=== PATIENT | female | born 1935 | race Caucasian/White ===

== ENCOUNTER → 2018-12-26 | Outpatient (CLI) | payer MEDICARE ==
--- NOTE | 2018-12-26 13:03 | Diagnostic Imaging Report ---
INDICATION: Congestive heart failure. TECHNIQUE: Two view chest 12:44 PM CORRELATION STUDY: None FINDINGS: Left-sided dual-chamber pacemaker present. Cardiac enlargement along with pulmonary vascular congestion. Prominent interstitial markings favor a component of edema. No consolidating infiltrate. No significant effusion. Mildly advanced degenerative changes thoracic spine. IMPRESSION: 1. Cardiac enlargement the findings compatible with likely mild severity congestive heart failure. Component of mild interstitial edema present. Dictated by: Dictated on workstation # [id number]
== END ==
LOC: RAD FS 12:39
PROVIDERS: ATTEND Nurse Practitioner Family
DX: I50.9 Heart failure, unspecified (principal); I51.7 Cardiomegaly
CPT/HCPCS: 71046

== ENCOUNTER → 2019-03-22 | Outpatient (CLI) | payer MEDICARE ==
--- NOTE | 2019-03-22 10:12 | Diagnostic Imaging Report ---
INDICATION: Chronic low back pain. TIME OF EXAM: 9:57 AM FINDINGS: Curvature and alignment of lumbar spine is normal. There is compression fracture deformity involving the L3 vertebral body, which demonstrates moderate central and anterior compression. Age of this is indeterminate. No definite retropulsion is seen. Remaining lumbar vertebrae demonstrate normal stature. There is generalized degenerative disc disease with variable disc space narrowing and marginal spurring. Aorta is calcified. IMPRESSION: L3 compression fracture, age indeterminate. MRI could be performed to evaluate acuity. If the patient is unable to obtain an MRI, CT through the lumbar spine could be performed to evaluate for potential acuity. Dictated by: Dictated on workstation # [id number]
== END ==
LOC: RAD FS 09:53
PROVIDERS: ATTEND Family Medicine
DX: S32.030A Wedge compression fracture of third lumbar vertebra, initial encounter for closed fracture (principal)
CPT/HCPCS: 72100

== ENCOUNTER → 2019-08-17 | Outpatient (CLI) | payer MEDICARE ==
[2019-08-17 11:14] LABS: INR 4.5 (0.8-1.4); PROTHROMBIN TIME PATIENT 45.2 SEC (12.2-14.7)
== END ==
LOC: LAB FS 10:46
PROVIDERS: ATTEND Internal Medicine Interventional Cardiology
DX: I50.9 Heart failure, unspecified (principal); Z95.0 Presence of cardiac pacemaker; Z79.01 Long term (current) use of anticoagulants
CPT/HCPCS: 36415; 85610

== ENCOUNTER → 2019-09-24 | Outpatient (CLI) | payer MEDICARE ==
[2019-09-24 10:58] LABS: BILIRUBIN,URINE NEGATIVE (NEGATIVE); CLARITY,URINE CLEAR; COLOR,URINE YELLOW; GLUCOSE, URINE (UA) NEGATIVE (NEGATIVE); KETONES,URINE NEGATIVE (NEGATIVE); LEUKOCYTE ESTERASE ,URINE NEGATIVE (NEGATIVE); NITRITE,URINE NEGATIVE (NEGATIVE); PH,URINE 6.5 (5-9); PROTEIN,URINE NEGATIVE (NEGATIVE)
[2019-09-24 10:59] LABS: BACTERIA,URINE TRACE /HPF
[2019-09-24 11:30] LABS: HEMOGLOBIN 9.8 G/DL (11.5-16.0); MEAN PLATELET VOLUME 9.4 FL (7.4-10.4); RED CELL DISTRIBUTION WIDTH 15.9 % (10.0-14.5); WHITE BLOOD COUNT 7.8 10^3/uL (4.3-11.0)
[2019-09-24 15:16] LABS: PHOSPHORUS 3.3 MG/DL (2.3-4.7)
[2019-09-24 15:29] LABS: URINE CREATININE FOR RATIO 80 MG/DL (30-125); URINE PROTEIN FOR RATIO ONLY < 6 MG/DL (6-12)
[2019-09-25 07:33] LABS: CALCIUM 9.4 MG/DL (8.5-10.1); CREATININE SERUM 1.61 MG/DL (0.60-1.30); POTASSIUM 3.6 MMOL/L (3.6-5.0)
== END ==
LOC: LAB FS 09:48
PROVIDERS: ATTEND Internal Medicine Nephrology
DX: E10.21 Type 1 diabetes mellitus with diabetic nephropathy (principal); E10.22 Type 1 diabetes mellitus with diabetic chronic kidney disease; I50.22 Chronic systolic (congestive) heart failure; I50.30 Unspecified diastolic (congestive) heart failure; D64.9 Anemia, unspecified; G47.33 Obstructive sleep apnea (adult) (pediatric); N18.3 Chronic kidney disease, stage 3 (moderate); N17.9 Acute kidney failure, unspecified
CPT/HCPCS: 36415; 80069; 81000; 82306; 82570; 82728; 83540; 83970; 84156; 84550; 85027

== ENCOUNTER 2019-10-18 08:58 | Outpatient (RCR) | payer MEDICARE ==
[2019-10-11 08:35] VITALS: BP 105/50
[2019-10-11] MEDS: FERRIC CARBOXYMALTOSE INJ 750 MG in NS (IVPB) 250 ML IV SCH (09:19)
[~2019-10-18] VITALS: Wt 107.0 kg
[2019-10-18 08:55] VITALS: BP 112/61
[~2019-10-18 08:58] MED LIST: ALBU0.63 IH; ALLO100T PO; ESCI10TA PO; FAMO-119 PO; FURO80TA83 PO; LEVO5DRO OU; LOSA50TA63 PO; METO2.5T PO; OMG1KC PO; POTA20TA15 PO; PRAM0.5T2 PO; SILD20TA PO; SIMV20TA PO; SOTA120T PO; TRM50T PO; WARF-47 PO
[2019-10-18] MEDS: FERRIC CARBOXYMALTOSE INJ 750 MG in NS (IVPB) 250 ML IV SCH (09:19)
== END 2019-10-18 09:50 | disposition home or self-care (01) ==
LOC: SDC 08:58
PROVIDERS: ATTEND Internal Medicine Nephrology
DX: D50.9 Iron deficiency anemia, unspecified (principal); N18.3 Chronic kidney disease, stage 3 (moderate)
CPT/HCPCS: 96365

== ENCOUNTER → 2020-01-07 | Outpatient (CLI) | payer MEDICARE ==
[2020-01-07 19:11] LABS: EOSINOPHILS % (AUTO) 6 % (0-10); HEMATOCRIT 38 % (35-52); HEMOGLOBIN 11.4 G/DL (11.5-16.0); LYMPHOCYTES % (AUTO) 33 % (12-44); MEAN CORPUSCULAR HEMOGLOBIN 30 PG (25-34); MEAN CORPUSCULAR HGB CONC 30 G/DL (32-36); MEAN CORPUSCULAR VOLUME 101 FL (80-99); MEAN PLATELET VOLUME 10.2 FL (7.4-10.4); MONOCYTES % (AUTO) 6 % (0-12); NEUTROPHILS % (AUTO) 55 % (42-75); PLATELET COUNT 99 10^3/uL (130-400); RED CELL DISTRIBUTION WIDTH 15.1 % (10.0-14.5); WHITE BLOOD COUNT 6.9 10^3/uL (4.3-11.0)
[2020-01-07 19:12] LABS: EOSINOPHILS # (AUTO) 0.4 10^3/uL (0.0-0.3); LYMPHOCYTES # (AUTO) 2.3 X 10^3 (1.0-4.0); MONOCYTES # (AUTO) 0.4 X 10^3 (0.0-1.0); NEUTROPHILS # (AUTO) 3.7 X 10^3 (1.8-7.8)
[2020-01-07 19:13] LABS: BASOPHILS % (AUTO) 0 % (0-10)
[2020-01-07 19:30] LABS: BACTERIA,URINE NEGATIVE /HPF; BILIRUBIN,URINE NEGATIVE (NEGATIVE); CLARITY,URINE CLEAR; COLOR,URINE PALE YELLOW; GLUCOSE, URINE (UA) NEGATIVE (NEGATIVE); KETONES,URINE NEGATIVE (NEGATIVE); LEUKOCYTE ESTERASE ,URINE NEGATIVE (NEGATIVE); NITRITE,URINE NEGATIVE (NEGATIVE); PH,URINE 6.5 (5-9); PROTEIN,URINE NEGATIVE (NEGATIVE); SQUAMOUS EPITHELIAL CELL,UR RARE /HPF
[2020-01-08 15:17] LABS: PHOSPHORUS 3.2 MG/DL (2.3-4.7)
[2020-01-08 15:20] LABS: URIC ACID 6.5 MG/DL (2.6-7.2)
[2020-01-08 15:23] LABS: URINE CREATININE FOR RATIO 18 MG/DL (30-125)
[2020-01-08 15:24] LABS: URINE PROTEIN FOR RATIO ONLY < 6 MG/DL (6-12)
[2020-01-08 15:43] LABS: BUN/CREATININE RATIO 26; CALCIUM 9.5 MG/DL (8.5-10.1); CARBON DIOXIDE 30 MMOL/L (21-32); CHLORIDE 100 MMOL/L (98-107); CREATININE SERUM 0.88 MG/DL (0.60-1.30); GFR ESTIMATED > 60; GLUCOSE 81 MG/DL (70-105); POTASSIUM 4.7 MMOL/L (3.6-5.0); SODIUM 142 MMOL/L (135-145)
== END ==
LOC: LAB FS 18:29
PROVIDERS: ATTEND Internal Medicine Nephrology
DX: I50.21 Acute systolic (congestive) heart failure (principal); N18.9 Chronic kidney disease, unspecified
CPT/HCPCS: 36415; 80069; 81000; 82306; 82570; 82728; 83540; 83970; 84156; 84550; 85025

== ENCOUNTER 2021-01-15 12:34 | Outpatient (RCR) | payer MEDICARE ==
[2021-01-08] MEDS: FERRIC CARBOXYMALTOSE INJ 750 MG in NS (IVPB) 250 ML IV SCH (12:49)
[2021-01-08 13:27] VITALS: BP 176/80
[~2021-01-15] VITALS: Ht 157.5 cm; Wt 107.0 kg
[2021-01-15] MEDS: FERRIC CARBOXYMALTOSE INJ 750 MG in NS (IVPB) 250 ML IV SCH (12:59)
[2021-01-15 13:26] VITALS: BP 143/58
== END 2021-04-08 | disposition home or self-care (01) ==
LOC: SDC 12:34
PROVIDERS: ATTEND Internal Medicine Nephrology
DX: D63.1 Anemia in chronic kidney disease (principal); N18.9 Chronic kidney disease, unspecified
CPT/HCPCS: 96365

== ENCOUNTER 2022-07-07 10:06 | Emergency (ER) | payer MEDICARE ==
[~2022-07-07] VITALS: Ht 162.5 cm; Wt 107.0 kg
[~2022-07-07 10:06] MED LIST changes: +POTA-179 PO; -POTA20TA15 PO; +SIMV-333 PO; -SIMV20TA PO
--- NOTE | 2022-07-07 10:11 | ED Fall/Injury ---
General Stated Complaint: FELL/ANKLE INJURY History of Present Illness Date Seen by Provider: Jul 07, 2022 Time Seen by Provider: 10:11 Initial Comments 86-year-old female who is taking Coumadin, is brought in by EMS with complaints of a trip and fall while getting into her car today. Patient's ankle twisted on the curb causing her to stumble and fall and hit her head on the door. Patient sustained an abrasion to her right forearm. Denies LOC, headache, dizziness, blurry vision. Patient's left ankle is swollen and she is unable to bear weight. Allergies and Home Medications Allergies Coded Allergies: Penicillins (Unverified Allergy, Unknown, rash, 10/11/19) Sulfa (Sulfonamide Antibiotics) (Unverified Adverse Reaction, Unknown, unknown, 10/11/19) adhesive tape (Unverified Adverse Reaction, Unknown, itch, 10/11/19) amlodipine (Unverified Adverse Reaction, Unknown, swelling, 10/11/19) atropine (Unverified Adverse Reaction, Unknown, diarrhea, 10/11/19) clopidogrel (Unverified Adverse Reaction, Unknown, rash, 10/11/19) diphenoxylate (Unverified Adverse Reaction, Unknown, diarrhea, 10/11/19) doxycycline (Unverified Adverse Reaction, Unknown, diarrheaa, 10/11/19) lincomycin (Unverified Adverse Reaction, Unknown, diarrhea, 10/11/19) lisinopril (Unverified Adverse Reaction, Unknown, cough, 10/11/19) Patient Home Medication List Home Medication List Reviewed: Yes Albuterol Sulfate (Albuterol Sulfate) 0.63 Mg/3 Ml Vial.neb, 0.63 MG IH Q6H PRN for SHORTNESS OF BREATH, (Reported) Entered as Reported by: THAO GONZALEZ on 10/11/19912 Allopurinol (Allopurinol) 100 Mg Tablet, 100 MG PO DAILY, (Reported) Entered as Reported by: THAO GONZALEZ on 10/11/19912 Escitalopram Oxalate (Lexapro) 10 Mg Tablet, 10 MG PO DAILY, (Reported) Entered as Reported by: THAO GONZALEZ on 10/11/19912 Famotidine (Pepcid) 20 Mg Tablet, 20 MG PO BID, (Reported) Entered as Reported by: THAO GONZALEZ on 10/11/19912 Furosemide (Lasix) 80 Mg Tablet, 80 MG PO DAILY, (Reported) Entered as Reported by: THAO GONZALEZ on 10/11/19912 Levobunolol HCl (Levobunolol HCl) 5 Ml Drops, 1 DROP OU DAILY, (Reported) Entered as Reported by: THAO GONZALEZ on 10/11/19912 Losartan Potassium (Losartan Potassium) 50 Mg Tablet, 50 MG PO DAILY, (Reported) Entered as Reported by: THAO GONZALEZ on 10/11/19912 Metolazone (Metolazone) 2.5 Mg Tablet, 2.5 MG PO twice weekly, (Reported) Entered as Reported by: THAO GONZALEZ on 10/11/19912 [place] 3 Polyunsat Fatty Acids (Fish Oil 1,000 mg Capsule) 1,000 Mg Cap, 1,000 MG PO Q12H, (Reported) Entered as Reported by: THAO GONZALEZ on 10/11/19912 Potassium Chloride (Potassium Chloride) 20 Meq Tab.er.prt, 20 MEQ PO BID, (Reported) Entered as Reported by: THAO GONZALEZ on 10/11/19912 Pramipexole Di-HCl (Mirapex) 0.5 Mg Tablet, 0.5 MG PO BID, (Reported) Entered as Reported by: THAO GONZALEZ on 10/11/19912 Sildenafil Citrate (Revatio) 20 Mg Tablet, 20 MG PO TID, (Reported) Entered as Reported by: THAO GONZALEZ on 10/11/19912 Simvastatin (Zocor) 20 Mg Tablet, 20 MG PO HS, (Reported) Entered as Reported by: THAO GONZALEZ on 10/11/19912 Sotalol HCl (Sotalol) 120 Mg Tablet, 120 MG PO Q12H, (Reported) Entered as Reported by: THAO GONZALEZ on 10/11/19912 Tramadol HCl (Tramadol HCl) 50 Mg Tablet, 50 MG PO Q6H PRN for PAIN-MODERATE (5- 7), (Reported) Entered as Reported by: THAO GONZALEZ on 10/11/19912 Warfarin Sodium (Warfarin Sodium) 2 Mg Tablet, 2 MG PO DAILY, (Reported) Entered as Reported by: THAO GONZALEZ on 10/11/19 0913 Review of Systems Review of Systems Constitutional: no symptoms reported Eyes: No Symptoms Reported Ears, Nose, Mouth, Throat: no symptoms reported Respiratory: no symptoms reported Cardiovascular: no symptoms reported Gastrointestinal: no symptoms reported Genitourinary: no symptoms reported Musculoskeletal: joint pain, joint swelling Skin: no symptoms reported Psychiatric/Neurological: No Symptoms Reported Physical Exam Vital Signs Vital Signs - First Documented 07/07/22 10:07 Temp 36.3 Pulse 78 Resp 16 B/P (MAP) 110/54 (72) Pulse Ox 97 O2 Delivery Room Air Capillary Refill : Height, Weight, BMI Height: '" Weight: lbs. oz. 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, no motor/sensory deficits, alert, normal mood/affect, oriented x 3 Skin: normal color Lymphatic: no adenopathy [place] Coma Score Best Eye Response: (4) Open Spontaneously Best Verbal Response: (5) Oriented Best Motor Response: (6) Obeys Commands [place] Total: 15 Progress/Results/Core Measures Results/Orders My Orders Orders - DAMION PANDYA MD Ankle 3 View Left (07/07/22 10:16) Foot 2 View Left (07/07/22 10:16) Knee 2 View Left (07/07/22 10:16) Tibia Fibula 2 View Left (07/07/22 10:16) Ct Head Wo (07/07/22 10:20) Vital Signs/I&O 07/07/22 10:07 Temp 36.3 Pulse 78 Resp 16 B/P (MAP) 110/54 (72) Pulse Ox 97 O2 Delivery Room Air Progress Progress Note : Progress Note 1) FALL: LEFT ANKLE SPRAIN/ RIGHT FOREARM ABRASION: - CT HEAD: no acute findings - XR LEFT ANKLE/ FOOT/ TIB-FIB/ KNEE: no fractures. Foot x-ray shows lucency in 2nd toe, but pt does not have any pain there. It may be chronic - Pt is not able to use crutches,will give her a boot and she can use her walker. - FOllow up with Ortho within 7days - Tylenol & Ibuprofen prn pain - Abrasion cleaned, antibiotic ointment and bandaid -The patient was seen in the ED, and treated appropriately to presentation at a specific point in time. Patient is informed that there is a possibility that disease and illness can evolve and change in acuity rapidly or slowly after patient is discharged from the ER. Precautionary advice given to the patient for immediate return to ER if symptoms worsen or do not resolve, and to seek emergency care sooner rather than later. Pt also advised on the importance of PCP follow up and compliance with management and follow up plan with PCP and/or specialist, as this is part of the management plan. Pt verbally expressed understanding. Diagnostic Imaging Diagonstic Imaging: Xray, CT Plain Films/CT/US/NM/MRI: leg, knee, ankle, head Comments [facility] [place] [place] NAME: CANDY LEDESMA [employer] REC#: [id number] PT STATUS: REG ER : 1935 PHYSICIAN: DMAION PANDYA MD ADMIT DATE: 07/07/22/ER FS Draft Date of Exam:07/07/22 FOOT 2 VIEW LEFT INDICATION: Fall. Left foot pain. FINDINGS: There is a lucency along the base of the proximal phalanx of the 2nd toe along the 1st digit side. This may represent an acute or old fracture as it does appear slightly corticated. No other signs of fracture are seen. Generalized osteoarthritic changes are noted. IMPRESSION: Small bony fragment along the base of the 2nd digit proximal phalanx. Clinical correlation to determine if this is an acute or chronic finding. Dictated on workstation # [id number] Dict: 07/07/22 1107 Trans: 07/07/22 1110 [id number] Interpreted by: BIJAL SOMERS MD Electronically signed by: [facility] [place] NAME: CANDY LEDESMA MED REC#: [id number] PT STATUS: REG ER : 1935 PHYSICIAN: DAMION PANDYA MD ADMIT DATE: 07/07/22/ER FS Draft Date of Exam:07/07/22 KNEE 2 VIEW LEFT Indication: Fall. Left knee pain. FINDINGS: 2 views. The articulating surfaces are smooth. Joint space well-maintained. Patella is in good alignment. No fractures are seen. IMPRESSION: Normal left knee. Dictated on workstation # [id number] Dict: 07/07/22 1109 Trans: 07/07/22 1110 [facility] [id number] Interpreted by: BIJAL SOMERS MD Electronically signed by: [employer] [facility] [place] [place] NAME: KELI LEDESMAYCE Ric [employer] REC#: [id number] PT STATUS: REG ER : 1935 PHYSICIAN: DAMION PANDYA MD ADMIT DATE: 07/07/22/ER FS Draft Date of Exam:07/07/22 ANKLE 3 VIEW LEFT INDICATION: Fall, pain. FINDINGS: Bone density appears diminished. There is likely underlying osteopenia or osteoporosis. No detectable fracture. No widening or disruption of the ankle mortise. The articular surfaces are smooth. There is soft tissue swelling about the ankle, most notably laterally. The base of the fifth metatarsal is intact. No gas or foreign body. IMPRESSION: Lateral swelling and likely bony demineralization, however no fracture or disruption to the mortise apparent. Dictated on workstation # [id number] Dict: 07/07/22 1100 Trans: 07/07/22 1106 [id number] Interpreted by: CARMENCITA KEBEDE Electronically signed by: [facility] [place] [place] NAME: KELI LEDESMAYCE Ric [employer] REC#: [id number] PT STATUS: REG ER : 1935 PHYSICIAN: DAMION PANDYA MD ADMIT DATE: 07/07/22/ER FS Draft Date of Exam:07/07/22 CT HEAD WO PROCEDURE: CT head without contrast. TECHNIQUE: Multiple contiguous axial images were obtained through the brain without the use of intravenous contrast. Auto Exposure Controls were utilized during the CT exam to meet ALARA standards for radiation dose reduction. INDICATION: Fall. FINDINGS: There is mild senescent cortical atrophy. There are intracranial atherosclerotic vascular calcifications. There is no william hydrocephalus and there is no focal or generalized cerebral edema. There are no findings of an elevated intracerebral pressure. No abnormal extra-axial collection. There is no hemorrhage. The calvarium is unremarkable. The orbits and sinuses appear nonacute with lobular membrane thickening and a likely mucus retention cyst in the right maxillary. IMPRESSION: 1. Mild chronic senescent atrophy, atherosclerosis, and chronic appearing paranasal sinus membrane disease. 2. However, no hemorrhage, cerebral edema, hydrocephalus, or acute appearing abnormalities. 3. 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 Dictated on workstation # [id number] Dict: 07/07/22 1053 Trans: 07/07/22 105 JEFFERY [id number] Interpreted by: CARMENCITA KEBEDE Electronically signed by: [facility] [place] [place] NAME: CANDY LEDESMA [employer] REC#: [id number] PT STATUS: REG ER : 1935 PHYSICIAN: DAMION PANDYA MD ADMIT DATE: 07/07/22/ER FS Draft Date of Exam:07/07/22 TIBIA FIBULA 2 VIEW LEFT Indication: Fall with left lower leg pain. FINDINGS: 2 views. The tibia and fibula are intact. Ankle mortise is in good alignment. There are a few phleboliths noted. IMPRESSION: No acute abnormalities. Dictated on workstation # [id number] Dict: 07/07/22 1108 Trans: 07/07/22 1110 DEREK [id number] Interpreted by: BIJAL SOMERS MD Electronically signed by: Departure Impression Primary Impression: Fall Qualified Codes: W19.XXXA - Unspecified fall, initial encounter Additional Impression: Left ankle sprain Qualified Codes: S93.402A - Sprain of unspecified ligament of left ankle, initial encounter Disposition: 01 HOME, SELF-CARE Condition: Stable Departure-Patient Inst. Referrals: MARILYNN PAREKH MD (PCP/Family) Primary Care Physician FAIZA QUINTANA MD Patient Instructions: Preventing Falls ED, Ankle Sprain (DC) Add. Discharge Instructions: - Pt is not able to use crutches,will give her a boot and she can use her walker. - FOllow up with Ortho, Dr Quintana's office: within 7days. Make appointment - Tylenol & Ibuprofen prn pain DAMION PANDYA MD Jul 07, 2022 10:11
--- NOTE | 2022-07-07 10:57 | Diagnostic Imaging Report ---
PROCEDURE: CT head without contrast. TECHNIQUE: Multiple contiguous axial images were obtained through the brain without the use of intravenous contrast. Auto Exposure Controls were utilized during the CT exam to meet ALARA standards for radiation dose reduction. INDICATION: Fall. FINDINGS: There is mild senescent cortical atrophy. There are intracranial atherosclerotic vascular calcifications. There is no william hydrocephalus and there is no focal or generalized cerebral edema. There are no findings of an elevated intracerebral pressure. No abnormal extra-axial collection. There is no hemorrhage. The calvarium is unremarkable. The orbits and sinuses appear nonacute with lobular membrane thickening and a likely mucus retention cyst in the right maxillary. IMPRESSION: 1. Mild chronic senescent atrophy, atherosclerosis, and chronic appearing paranasal sinus membrane disease. 2. However, no hemorrhage, cerebral edema, hydrocephalus, or acute appearing abnormalities. 3. 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 Dictated by: Dictated on workstation # [id number]
--- NOTE | 2022-07-07 11:06 | Diagnostic Imaging Report ---
INDICATION: Fall, pain. FINDINGS: Bone density appears diminished. There is likely underlying osteopenia or osteoporosis. No detectable fracture. No widening or disruption of the ankle mortise. The articular surfaces are smooth. There is soft tissue swelling about the ankle, most notably laterally. The base of the fifth metatarsal is intact. No gas or foreign body. IMPRESSION: Lateral swelling and likely bony demineralization, however no fracture or disruption to the mortise apparent. Dictated by: Dictated on workstation # [id number]
--- NOTE | 2022-07-07 11:10 | Diagnostic Imaging Report ---
Indication: Fall. Left knee pain. FINDINGS: 2 views. The articulating surfaces are smooth. Joint space well-maintained. Patella is in good alignment. No fractures are seen. IMPRESSION: Normal left knee. Dictated by: Dictated on workstation # [id number]
--- NOTE | 2022-07-07 11:10 | Diagnostic Imaging Report ---
Indication: Fall with left lower leg pain. FINDINGS: 2 views. The tibia and fibula are intact. Ankle mortise is in good alignment. There are a few phleboliths noted. IMPRESSION: No acute abnormalities. Dictated by: Dictated on workstation # [id number]
--- NOTE | 2022-07-07 11:10 | Diagnostic Imaging Report ---
INDICATION: Fall. Left foot pain. FINDINGS: There is a lucency along the base of the proximal phalanx of the 2nd toe along the 1st digit side. This may represent an acute or old fracture as it does appear slightly corticated. No other signs of fracture are seen. Generalized osteoarthritic changes are noted. IMPRESSION: Small bony fragment along the base of the 2nd digit proximal phalanx. Clinical correlation to determine if this is an acute or chronic finding. Dictated by: Dictated on workstation # [id number]
[2022-07-07 12:05] VITALS: BP 118/55
== END 2022-07-07 12:05 | disposition home or self-care (01) ==
LOC: EDUNIT# 10:06 → ER FS 10:09
DX: S93.402A Sprain of unspecified ligament of left ankle, initial encounter (principal); S50.811A Abrasion of right forearm, initial encounter; W01.0XXA Fall on same level from slipping, tripping and stumbling without subsequent striking against object, initial encounter; W22.8XXA Striking against or struck by other objects, initial encounter
CPT/HCPCS: 70450; 73560; 73590; 73610; 73620

== ENCOUNTER 2022-07-07 12:48 | Emergency (ER) | payer MEDICARE | END 2022-07-07 13:43 | disposition left against medical advice (07) | LOC: EDUNIT# 12:48 → ER FS 12:50 | DX: R06.02 Shortness of breath (principal) ==

== ENCOUNTER 2022-08-13 10:40 | Emergency (ER) | payer MEDICARE ==
[~2022-08-13] VITALS: Ht 162.5 cm; Wt 100.0 kg
[2022-08-13] MEDS ORDERED: RT-ALBUTEROL/IPRATROPIUM 3 ML (DUONEB) VIAL INH ONE (11:00)
[2022-08-13 11:04] LABS: BASOPHILS # (AUTO) 0.1 10^3/uL (0.0-0.1); BASOPHILS % (AUTO) 1 % (0-10); EOSINOPHILS # (AUTO) 0.3 10^3/uL (0.0-0.3); EOSINOPHILS % (AUTO) 2 % (0-10); HEMATOCRIT 27 % (35-52); HEMOGLOBIN 7.8 g/dL (11.5-16.0); LYMPHOCYTES % (AUTO) 40 % (12-44); MEAN CORPUSCULAR HEMOGLOBIN 29 pg (25-34); MEAN CORPUSCULAR HGB CONC 29 g/dL (32-36); MEAN CORPUSCULAR VOLUME 98 fL (80-99); MEAN PLATELET VOLUME 10.6 fL (9.0-12.2); MONOCYTES # (AUTO) 0.7 10^3/uL (0.0-1.0); MONOCYTES % (AUTO) 5 % (0-12); NEUTROPHILS % (AUTO) 52 % (42-75); PLATELET COUNT 196 10^3/uL (130-400); WHITE BLOOD COUNT 15.3 10^3/uL (4.3-11.0)
[2022-08-13 11:13] LABS: INR 2.6 (0.8-1.4); PROTHROMBIN TIME PATIENT 28.1 SEC (12.2-14.7)
--- NOTE | 2022-08-13 11:21 | Diagnostic Imaging Report ---
INDICATION: SOA, Chest pain. TECHNIQUE: Single view chest 10:59 AM. CORRELATION STUDY: 12/26/2018 FINDINGS: Left-sided pacemaker is stable. Heart size and mediastinum are enlarged and more prominent from prior. Also appears to be likely increasing pulmonary vascular congestion and perihilar edema. Bilateral pulmonary opacities favor edema along with small effusions. IMPRESSION: 1. Adverse change at follow-up chest, consistent with congestive heart failure. Bilateral pulmonary opacities favor asymmetric areas of edema with the possibility of infiltrate not excluded. Follow-up imaging is recommended. Dictated by: Dictated on workstation # [id number]
[2022-08-13 11:32] LABS: POTASSIUM 3.8 MMOL/L (3.6-5.0)
[2022-08-13 11:33] LABS: CALCIUM 9.7 MG/DL (8.5-10.1); CREATININE SERUM 1.11 MG/DL (0.60-1.30); MAGNESIUM 1.6 MG/DL (1.6-2.4)
[2022-08-13 11:34] LABS: ALBUMIN 3.7 GM/DL (3.2-4.5); BILIRUBIN,TOTAL 0.6 MG/DL (0.1-1.0); TOTAL PROTEIN 7.2 GM/DL (6.4-8.2)
[2022-08-13 12:21] LABS: ANISOCYTOSIS SLIGHT; ATYPICAL LYMPHOCYTES 1 %; BAND NEUTROPHILS 3 %; BASOPHILS % (MANUAL) 0 %; EOSINOPHILS % (MANUAL) 0 %; LYMPHOCYTES % (MANUAL) 35 %; METAMYELOCYTES % 1 %; MONOCYTES % (MANUAL) 3 %; NEUTROPHILS % (MANUAL) 57 %
--- NOTE | 2022-08-13 12:59 | ED General ---
General Chief Complaint: Respiratory Problems Stated Complaint: RESP DISTRESS Nursing Triage Note: Patient brought in via EMS with c/o shortness of breath that became worse today. Pt. states she has had a cough. Pt. denies any chest pain, fever, sore throat, or congestion. Pt. states she does have a Hx. of COPD. Pt. states she is supposed to use bipap at home, but denies using it. Pt. diminished throughout. EMS stated they gave patient 125 mg solu-medrol, duoneb Tx., and Albuterol Tx. in route to ER. Source of Information: Patient, EMS, Family, Old Records Exam Limitations: No Limitations History of Present Illness Date Seen by Provider: Aug 13, 2022 Time Seen by Provider: 10:41 Initial Comments This 86-year-old woman presents to the emergency room via EMS from her home where she notes becoming increasingly short of breath since last night. She reports a little bit of cough but no fever. When asked about chest pain, she states "a little bit". She has a history of congestive heart failure, pulmonary hypertension, hypertension, chronic kidney disease, coronary artery disease, and pacemaker. She is anticoagulated on warfarin. Her primary care provider is Dr. Parekh. Her specialty care is provided by [facility]. Her computer system specialist is Dr. Marshall and her theology professor is Dr. Keita. EMS notes that she was hypoxic with oxygen saturation of 85% on her home oxygen at 2 L. DuoNeb and albuterol were administered in route along with Solu-Medrol 125 mg IV. She presents with a boot on the left foot for prior ankle sprain. Allergies and Home Medications Allergies Coded Allergies: Penicillins (Unverified Allergy, Unknown, rash, 10/11/19) Sulfa (Sulfonamide Antibiotics) (Unverified Adverse Reaction, Unknown, unknown, 10/11/19) adhesive tape (Unverified Adverse Reaction, Unknown, itch, 10/11/19) amlodipine (Unverified Adverse Reaction, Unknown, swelling, 10/11/19) atropine (Unverified Adverse Reaction, Unknown, diarrhea, 10/11/19) clopidogrel (Unverified Adverse Reaction, Unknown, rash, 10/11/19) diphenoxylate (Unverified Adverse Reaction, Unknown, diarrhea, 10/11/19) doxycycline (Unverified Adverse Reaction, Unknown, diarrheaa, 10/11/19) lincomycin (Unverified Adverse Reaction, Unknown, diarrhea, 10/11/19) lisinopril (Unverified Adverse Reaction, Unknown, cough, 10/11/19) Patient Home Medication List Home Medication List Reviewed: Yes Albuterol Sulfate (Albuterol Sulfate) 0.63 Mg/3 Ml Vial.neb, 0.63 MG IH Q6H PRN for SHORTNESS OF BREATH, (Reported) Entered as Reported by: THAO GONZALEZ on 10/11/19912 Allopurinol (Allopurinol) 100 Mg Tablet, 100 MG PO DAILY, (Reported) Entered as Reported by: THAO GONZALEZ on 10/11/19912 Escitalopram Oxalate (Lexapro) 10 Mg Tablet, 10 MG PO DAILY, (Reported) Entered as Reported by: THAO GONZALEZ on 10/11/19912 Famotidine (Pepcid) 20 Mg Tablet, 20 MG PO BID, (Reported) Entered as Reported by: THAO GONZALEZ on 10/11/19912 Furosemide (Lasix) 80 Mg Tablet, 80 MG PO DAILY, (Reported) Entered as Reported by: THAO GONZALEZ on 10/11/19912 Levobunolol HCl (Levobunolol HCl) 5 Ml Drops, 1 DROP OU DAILY, (Reported) Entered as Reported by: THAO GONZALEZ on 10/11/19912 Losartan Potassium (Losartan Potassium) 50 Mg Tablet, 50 MG PO DAILY, (Reported) Entered as Reported by: THAO GONZALEZ on 10/11/19912 Metolazone (Metolazone) 2.5 Mg Tablet, 2.5 MG PO twice weekly, (Reported) Entered as Reported by: THAO GONZALEZ on 10/11/19912 [place] 3 Polyunsat Fatty Acids (Fish Oil 1,000 mg Capsule) 1,000 Mg Cap, 1,000 MG PO Q12H, (Reported) Entered as Reported by: THAO GONZALEZ on 10/11/19912 Potassium Chloride (Potassium Chloride) 20 Meq Tab.er.prt, 20 MEQ PO BID, (Reported) Entered as Reported by: THAO GONZALEZ on 10/11/19912 Pramipexole Di-HCl (Mirapex) 0.5 Mg Tablet, 0.5 MG PO BID, (Reported) Entered as Reported by: THAO GONZALEZ on 10/11/19912 Sildenafil Citrate (Revatio) 20 Mg Tablet, 20 MG PO TID, (Reported) Entered as Reported by: THAO GONZALEZ on 10/11/19912 Simvastatin (Zocor) 20 Mg Tablet, 20 MG PO HS, (Reported) Entered as Reported by: THAO GONZALEZ on 10/11/19912 Sotalol HCl (Sotalol) 120 Mg Tablet, 120 MG PO Q12H, (Reported) Entered as Reported by: THAO GONZALEZ on 10/11/19912 Tramadol HCl (Tramadol HCl) 50 Mg Tablet, 50 MG PO Q6H PRN for PAIN-MODERATE (5- 7), (Reported) Entered as Reported by: THAO GONZALEZ on 10/11/19912 Warfarin Sodium (Warfarin Sodium) 2 Mg Tablet, 2 MG PO DAILY, (Reported) Entered as Reported by: THAO GONZALEZ on 10/11/19912 Review of Systems Review of Systems Constitutional: no symptoms reported EENTM: no symptoms reported Respiratory: see HPI Cardiovascular: see HPI Gastrointestinal: no symptoms reported Genitourinary: no symptoms reported : No Musculoskeletal: no symptoms reported Skin: no symptoms reported Psychiatric/Neurological: Other (Alert and conversational but confused historian) Hematologic/Lymphatic: No Symptoms Reported Immunological/Allergic: no symptoms reported Past Fdqxvaa-Jpjrnl-Tbfvky Hx Patient Social History Tobacco Use?: No Use of E-Cig and/or Vaping dev: No Substance use?: No Alcohol Use?: No Pt feels they are or have been: No Immunizations Up To Date Influenza Vaccine Up-to-Date: No; Not Current First/Initial COVID19 Vaccinat: Yes Second COVID19 Vaccination Manny: Yes Past Medical History Surgery/Hospitalization HX: COPD, CHF, HTN Surgeries: Yes Coronary Stent, Pacemaker Respiratory: Yes (Pulmonary hypertension, chronic hypoxia) COPD (Questionable diagnosis) Cardiac: Yes (Pacemaker) Coronary Artery Disease, Hypertension : No Reproductive Disorders: No Genitourinary: Yes Renal Failure (Chronic kidney disease) Gastrointestinal: No Musculoskeletal: No Endocrine: No HEENT: No Cancer: No Psychosocial: No Physical Exam-Suspected Sepsis Physical Exam Vital Signs Vital Signs - First Documented 08/13/22 10:42 Temp 36.2 Pulse 92 Resp 24 B/P (MAP) 140/56 (84) Pulse Ox 91 O2 Delivery Nasal Cannula O2 Flow Rate 6.00 FiO2 91 Capillary Refill : Blood Pressure Mean: 84 Height, Weight, BMI Height: '" Weight: lbs. oz. kg; 37.00 BMI Method: General Appearance: WD/WN, Mild Distress (Respiratory), Obese HEENT: PERRL/EOMI, Normal ENT Inspection, Other (Oropharynx somewhat dry) Neck: Normal Inspection; No JVD Respiratory: No Respiratory Distress; No Crackles; Decreased Breath Sounds (Very poor air movement), Wheezing (Minimal) Cardiovascular: Regular Rate, Rhythm, No Murmur, Other (Mild lower extremity edema) Gastrointestinal: Non Tender, Soft; No Distended Extremity: Non Tender, Pedal Edema Neurologic/Psychiatric: Alert, No Motor/Sensory Deficits, Normal Mood/Affect, Other (Somewhat confused conversation) Skin: normal color, warm/dry Focused Exam Lactate Level 08/13/22 13:05: Lactic Acid Level 1.03 Lactic Acid Level Laboratory Tests Test 08/13/22 13:05 Lactic Acid Level 1.03 MMOL/L (0.50-2.00) Progress/Results/Core Measures Suspected Sepsis SIRS Temperature: Pulse: 92 Respiratory Rate: 24 Laboratory Tests 08/13/22 10:50: White Blood Count 15.3H Blood Pressure 140 /56 Mean: 84 08/13/22 13:05: Lactic Acid Level 1.03 Laboratory Tests 08/13/22 10:50: Creatinine 1.11, INR Comment 2.6H, Platelet Count 196, Total Bilirubin 0.6 Results/Orders Lab Results Laboratory Tests Test 08/13/22 10:50 08/13/22 13:05 08/13/22 14:22 Range/Units White Blood Count 15.3 H 4.3-11.0 10^3/uL Red Blood Count 2.71 L 3.80-5.11 10^6/uL Hemoglobin 7.8 L 11.5-16.0 g/dL Hematocrit 27 L 35-52 % Mean Corpuscular Volume 98 80-99 fL Mean Corpuscular Hemoglobin 29 25-34 pg Mean Corpuscular Hemoglobin Concent 29 L 32-36 g/dL Red Cell Distribution Width 15.8 H 10.0-14.5 % Platelet Count 196 130-400 10^3/uL Mean Platelet Volume 10.6 9.0-12.2 fL Immature Granulocyte % (Auto) 1 % Neutrophils (%) (Auto) 52 42-75 % Lymphocytes (%) (Auto) 40 12-44 % Monocytes (%) (Auto) 5 0-12 % Eosinophils (%) (Auto) 2 0-10 % Basophils (%) (Auto) 1 0-10 % Neutrophils # (Auto) 8.0 H 1.8-7.8 10^3/uL Lymphocytes # (Auto) 6.0 H 1.0-4.0 10^3/uL Monocytes # (Auto) 0.7 0.0-1.0 10^3/uL Eosinophils # (Auto) 0.3 0.0-0.3 10^3/uL Basophils # (Auto) 0.1 0.0-0.1 10^3/uL Immature Granulocyte # (Auto) 0.2 H 0.0-0.1 10^3/uL Neutrophils % (Manual) 57 % Lymphocytes % (Manual) 35 % Monocytes % (Manual) 3 % Eosinophils % (Manual) 0 % Basophils % (Manual) 0 % Metamyelocytes % 1 % Band Neutrophils 3 % Atypical Lymphocytes 1 % Anisocytosis SLIGHT Prothrombin Time 28.1 H 12.2-14.7 SEC INR Comment 2.6 H 0.8-1.4 Activated Partial Thromboplast Time 41 H 24-35 SEC Sodium Level 141 135-145 MMOL/L Potassium Level 3.8 3.6-5.0 MMOL/L Chloride Level 91 L 98-107 MMOL/L Carbon Dioxide Level 42 H 21-32 MMOL/L Anion Gap 8 5-14 MMOL/L Blood Urea Nitrogen 44 H 7-18 MG/DL Creatinine 1.11 0.60-1.30 MG/DL Estimat Glomerular Filtration Rate 49 BUN/Creatinine Ratio 40 Glucose Level 234 H 70-105 MG/DL Calcium Level 9.7 8.5-10.1 MG/DL Corrected Calcium 9.9 8.5-10.1 MG/DL Magnesium Level 1.6 1.6-2.4 MG/DL Total Bilirubin 0.6 0.1-1.0 MG/DL Aspartate Amino Transf (AST/SGOT) 22 5-34 U/L Alanine Aminotransferase (ALT/SGPT) 12 0-55 U/L Alkaline Phosphatase 53 40-136 U/L Myoglobin 34.4 <58.0 NG/ML Troponin I < 0.30 <0.30 NG/ML C-Reactive Protein 3.90 H <0.50 MG/DL Pro-B-Type Natriuretic Peptide 4018.0 H <450.0 PG/ML Total Protein 7.2 6.4-8.2 GM/DL Albumin 3.7 3.2-4.5 GM/DL Influenza Type A (RT-PCR) Not Detected Not Detecte Influenza Type B (RT-PCR) Not Detected Not Detecte SARS-CoV-2 RNA (RT-PCR) Not Detected Not Detecte Lactic Acid Level 1.03 0.50-2.00 MMOL/L Urine Color YELLOW Urine Clarity CLEAR Urine pH 5.5 5-9 Urine Specific Pope 1.010 L 1.016-1.022 Urine Protein NEGATIVE NEGATIVE Urine Glucose (UA) NEGATIVE NEGATIVE Urine Ketones NEGATIVE NEGATIVE Urine Nitrite NEGATIVE NEGATIVE Urine Bilirubin NEGATIVE NEGATIVE Urine Urobilinogen 0.2 < = 1.0 MG/DL Urine Leukocyte Esterase NEGATIVE NEGATIVE Urine RBC (Auto) NEGATIVE NEGATIVE Urine RBC NONE /HPF Urine WBC 0-2 /HPF Urine Squamous Epithelial Cells 0-2 /HPF Urine Crystals NONE /LPF Urine Bacteria NEGATIVE /HPF Urine Casts NONE /LPF Urine Mucus NEGATIVE /LPF Urine Culture Indicated NO My Orders Orders - FRANK WOODALL MD Cbc With Automated Diff (08/13/22 10:56) Magnesium (08/13/22 10:56) Chest 1 View Ap/Pa Only (08/13/22 10:56) Ekg Tracing (08/13/22 10:56) Comprehensive Metabolic Panel (08/13/22 10:56) Myoglobin Serum (08/13/22 10:56) Protime With Inr (08/13/22 10:56) Partial Thromboplastin Time (08/13/22 10:56) O2 (08/13/22 10:56) Monitor-Rhythm Ecg Trace Only (08/13/22 10:56) Ed Iv/Invasive Line Start (08/13/22 10:56) Troponin I Fs (08/13/22 10:56) Probnp Fs (08/13/22 10:56) Crp Fs (08/13/22 10:56) Albuterol/Ipra Inhalation Soln (Duoneb I (08/13/22 11:00) Bipap (Bilevel) Set Up (08/13/22 10:56) Arterial Blood Gas (08/13/22 10:57) Covid 19 Inhouse Test (08/13/22 10:57) Influenza A And B By Pcr (08/13/22 10:57) Manual Differential (08/13/22 10:50) Furosemide Injection (Lasix Injection) (08/13/22 13:00) Meropenem (Merrem 1000 Mg) (08/13/22 13:00) Blood Culture (08/13/22 12:46) Sputum Culture (08/13/22 12:46) Urinalysis (08/13/22 12:46) Urine Culture (08/13/22 12:46) Vital Signs Adult Sepsis Patie Q15M (08/13/22 12:46) Remove Rings In Anticipation O (08/13/22 12:46) Lactic Acid Analyzer (08/13/22 12:46) Meropenem (Merrem 500 Mg) (08/13/22 13:12) Ns (Ivpb) (Sodium Chloride 0.9% Ivpb Bag (08/13/22 13:13) Meropenem (Merrem 500 Mg) (08/13/22 13:13) Medications Given in ED Current Medications Medications Dose Ordered Sig/Jeffery Route Start Time Stop Time Status Last Admin Dose Admin Albuterol/ Ipratropium 3 ml ONCE ONCE INH 08/13/22 11:00 08/13/22 11:01 DC 08/13/22 12:17 3 ML Furosemide 40 mg ONCE ONCE IVP 08/13/22 13:00 08/13/22 13:01 DC 08/13/22 13:26 40 MG Meropenem 1000 mg/ Sodium Chloride 100 ml @ 200 mls/hr ONCE ONCE IV 08/13/22 13:00 08/13/22 13:29 DC 08/13/22 13:34 200 MLS/HR Vital Signs/I&O 08/13/22 08/13/22 08/13/22 08/13/22 10:42 10:42 10:42 15:48 Temp 36.2 Pulse 92 72 Resp 24 20 B/P (MAP) 140/56 (84) 124/58 Pulse Ox 91 99 O2 Delivery Nasal Cannula Nasal Cannula Nasal Cannula NIV CPAP O2 Flow Rate 6.00 6.00 2.00 85.00 FiO2 91 Capillary Refill : Blood Pressure Mean: 84 Progress Note #1: Time: 12:54 Progress Note Patient was placed on BiPAP shortly after arrival. She received an additional DuoNeb treatment. She had significant improvement with these measures and air movement improved on reevaluation. After review of chest x-ray and labs, she appears to have exacerbation of CHF. Lasix 40 mg IV has been ordered. However, she also has leukocytosis and a slight elevation in CRP. Pneumonia cannot be ruled out. Blood cultures and lactic acid will be obtained, and meropenem will be administered for initial therapy of possible pneumonia/sepsis. Given her history of pulmonary hypertension and heart failure, she should be admitted in a facility with pulmonology and cardiology services. Her cardiology services have been provided by Dr. Gaxiola at [facility] in [place]. [facility] is the most reasonable de stination given need for pulmonology and continuity of care. There is no closer facility that can provide the needed level of specially care and continuity of care. Unfortunately, EKG is not available at this time due to technology problems. Patient was noted to have anemia with hemoglobin of 7.8 which is a change from prior. There is no known active or recent bleeding. INR was 2.5 and she is on warfarin. Due to the anemia and elevated INR, aspirin has not been administered. Progress Note #2: Time: 14:30 Progress Note EKG was obtained. Patient appears in atrial fibrillation with probable left bundle branch block of unknown chronicity. She has not had chest pain since initial evaluation and troponin was negative. ECG Initial ECG Impression Date: Aug 13, 2022 Initial ECG Impression Time: 14:25 Initial ECG Rate: 77 Initial ECG Rhythm: A Fib/Flutter Comment Atrial fibrillation with probable left bundle branch block of unknown chronicity. Diagnostic Imaging Diagonstic Imaging: Xray Plain Films/CT/US/NM/MRI: chest Comments Chest x-ray viewed by me and report reviewed. See report below: NAME: [facility] REC#: [id number] PT STATUS: REG ER : 1935 PHYSICIAN: FRANK WOODALL MD ADMIT DATE: 08/13/22/ER FS Draft Date of Exam:08/13/22 CHEST 1 VIEW AP/PA ONLY INDICATION: SOA, Chest pain. TECHNIQUE: Single view chest 10:59 AM. CORRELATION STUDY: 12/26/2018 FINDINGS: Left-sided pacemaker is stable. Heart size and mediastinum are enlarged and more prominent from prior. Also appears to be likely increasing pulmonary vascular congestion and perihilar edema. Bilateral pulmonary opacities favor edema along with small effusions. IMPRESSION: 1. Adverse change at follow-up chest, consistent with congestive heart failure. Bilateral pulmonary opacities favor asymmetric areas of edema with the possibility of infiltrate not excluded. Follow-up imaging is recommended. Dictated on workstation # [id number] Dict: 08/13/22 1115 Trans: 08/13/22 1121 [facility] [id number] Interpreted by: DARÍO DUMONT DO Departure Impression Primary Impression: Respiratory failure Qualified Codes: J96.21 - Acute and chronic respiratory failure with hypoxia Additional Impressions: Acute exacerbation of congestive heart failure Qualified Codes: I50.9 - Heart failure, unspecified Pulmonary infiltrates Anemia Qualified Codes: D64.9 - Anemia, unspecified Anticoagulated Pulmonary hypertension Disposition: XFER [facility] Condition: Improved Transfer Transfer Reason: Exceeds level of care Time Spoke to Accepting Phy: 11:45 Transfer Progress Notes Transfer accepted to [facility] by Dr. Petty. Transfer Time: 15:35 Transfer Facility: [facility] [place] Method of Transfer: EMS Departure-Patient Inst. Decision time for Depature: 12:58 Referrals: MARILYNN PAREKH MD (PCP) Primary Care Physician Copy Copies To 1: MARILYNN PAREKH MD, JOSHUA T MD Aug 13, 2022 12:59
[2022-08-13] MEDS ORDERED: FUROSEMIDE 40 MG/4 ML INJ (LASIX) IVP ONE (13:00)
[2022-08-13] MEDS ORDERED: MEROPENEM 1,000 MG in NS (IVPB) 100 ML IV ONE (13:00)
[2022-08-13] MEDS ORDERED: MEROPENEM 500 MG VIAL (MERREM) IV ONE ×2 (13:12→13:13)
[2022-08-13] MEDS ORDERED: NS (IVPB) 100 ML ONE (13:13)
[2022-08-13 14:28] LABS: BILIRUBIN,URINE NEGATIVE (NEGATIVE); CLARITY,URINE CLEAR; COLOR,URINE YELLOW; GLUCOSE, URINE (UA) NEGATIVE (NEGATIVE); KETONES,URINE NEGATIVE (NEGATIVE); LEUKOCYTE ESTERASE ,URINE NEGATIVE (NEGATIVE); NITRITE,URINE NEGATIVE (NEGATIVE); PH,URINE 5.5 (5-9); PROTEIN,URINE NEGATIVE (NEGATIVE)
[2022-08-13 14:34] LABS: BACTERIA,URINE NEGATIVE /HPF; SQUAMOUS EPITHELIAL CELL,UR 0-2 /HPF; WBC,URINE 0-2 /HPF
[2022-08-13 15:48] VITALS: BP 124/58
== END 2022-08-13 15:48 | disposition short-term general hospital (02) ==
LOC: EDUNIT# 10:40 → ER FS 10:41
DX: J96.90 Respiratory failure, unspecified, unspecified whether with hypoxia or hypercapnia (principal); I13.0 Hypertensive heart and chronic kidney disease with heart failure and stage 1 through stage 4 chronic kidney disease, or unspecified chronic kidney disease; I50.9 Heart failure, unspecified; N18.9 Chronic kidney disease, unspecified; D63.1 Anemia in chronic kidney disease; R91.8 Other nonspecific abnormal finding of lung field; I27.20 Pulmonary hypertension, unspecified; E66.9 Obesity, unspecified; R74.02 Elevation of levels of lactic acid dehydrogenase [LDH]; R79.1 Abnormal coagulation profile; Z95.0 Presence of cardiac pacemaker; Z95.5 Presence of coronary angioplasty implant and graft; Z88.0 Allergy status to penicillin; Z68.37 Body mass index [BMI] 37.0-37.9, adult; Z20.822 Contact with and (suspected) exposure to COVID-19; Z28.310 Unvaccinated for COVID-19; Z79.01 Long term (current) use of anticoagulants
CPT/HCPCS: 36415; 51702; 71045; 80053; 81000; 83605; 83735; 83874; 83880; 84484; 85007; 85027; 85610; 85730; 86141; 87040; 87088; 87636; 93005